=== PATIENT | female | born 1955 | race Caucasian/White ===

== ENCOUNTER → 2021-12-01 | Outpatient (CLI) | payer MEDICARE | LOC: EMI 14:53 | DX: R29.90 Unspecified symptoms and signs involving the nervous system (principal) | CPT/HCPCS: 70551 ==

== ENCOUNTER → 2022-01-19 | Outpatient (CLI) | payer MEDICARE | LOC: CT 01-05 09:30 | DX: M25.561 Pain in right knee (principal); R31.29 Other microscopic hematuria | CPT/HCPCS: 73562; Q9967 ==

== ENCOUNTER → 2022-04-20 | Outpatient (CLI) | payer MEDICARE | LOC: KOH-I 14:19 | DX: M25.561 Pain in right knee (principal); M22.41 Chondromalacia patellae, right knee | CPT/HCPCS: 73721 ==